=== PATIENT | female | born 1990 | race African-American/Black ===

== ENCOUNTER 2021-02-03 19:09 | Emergency (ER) | payer MEDICAID ==
[~2021-02-03] VITALS: Ht 175.3 cm; Wt 59.1 kg
[2021-02-03 19:20] VITALS: BP 126/73
--- NOTE | 2021-02-03 20:06 | PHYS DOC ---
Past History Past Surgical History: No Surgical History Alcohol Use: None Adult General Chief Complaint Chief Complaint: ABDOMINAL PAIN HPI HPI Patient is a 30-year-old female who presents with her family for chief complaint of eye infection. States she has been getting infections in her left eye on and off for the past couple of months and has 1 currently. Denies any headaches, fevers, chest pain, shortness of breath, abdominal pain, nausea, vomiting, diarrhea. Denies any Covid/flu/cold symptoms. States she is eating and drinking normally for her. States she is making urine and stool normally for her. States she has not taken any medications or done anything for this infection or seeing her doctor. Review of Systems Review of Systems Review of systems otherwise unremarkable except noted in HPI Allergies Allergies Allergies Coded Allergies Type Severity Reaction Last Updated Verified No Known Drug Allergies 02/03/21 No Physical Exam Physical Exam Constitutional: Well developed, well nourished, no acute distress, non-toxic appearance. [] HENT: Normocephalic, atraumatic, bilateral external ears normal, oropharynx moist, no oral exudates, nose normal. [] Eyes: conjunctiva normal, no discharge, stye/hordeolum left upper eyelid with no significant erythema, edema or tenderness, no visual loss.. [] Neck: Normal range of motion, no tenderness, supple, no stridor. [] Cardiovascular:Heart rate regular rhythm, no murmur [] Lungs & Thorax: Bilateral breath sounds clear to auscultation [] Abdomen: soft, no tenderness, no masses, no pulsatile masses. [] Skin: Warm, dry, no erythema, no rash. [] Neurologic: Alert and oriented X 3, normal motor function, normal sensory function, no focal deficits noted. [] Psychologic: Affect normal, judgement normal, mood normal. [] Current Patient Data Vital Signs Vital Signs Date Time Temp Pulse Resp B/P (MAP) Pulse Ox O2 Delivery O2 Flow Rate FiO2 02/03/21 19:20 99.1 112 24 126/73 100 Room Air EKG EKG [] Radiology/Procedures Radiology/Procedures [] Heart Score C/O Chest Pain: No Risk Factors: Risk Factors: DM, Current or recent (<one month) smoker, HTN, HLP, family history of CAD, obesity. Risk Scores: Risk Factors: DM, Current or recent (<one month) smoker, HTN, HLP, family history of CAD, obesity. Course & Med Decision Making Course & Med Decision Making Patient is 30-year-old female who presents with a stye Vital signs not concerning. Physical exam noted above. Denied need for pain medicine. Discussed treatment at home for styes. Advised to follow-up with primary care physician on Friday. Gave return precautions to the ED. Patient grateful, verbalized understanding and agreed with plan of discharge. [] Olivia Disclaimer Dragon Disclaimer This electronic medical record was generated, in whole or in part, using a voice recognition dictation system. Departure Departure: Impression: Primary Impression: Sty, external Disposition: HOME / SELF CARE / HOMELESS Condition: GOOD Referrals: EFREM ABEL MD, RACHEL Patient Instructions: Naomi Additional Instructions: Thank you for coming into the emergency department tonight and allowing us to take care of you. Please read the attached information very carefully to go back over things we discussed. Please begin your warm compress treatments at home and you can use Tylenol and ibuprofen as needed. Please call your primary care physician or one of the physicians at the numbers provided to you first thing Friday morning to set up a follow-up appointment. Dr. Abel is a mail manager if you do not already have one. Please come back to the ED with new or concerning symptoms as discussed. ADRIAN PATRICK MD Feb 03, 2021 20:06
== END 2021-02-03 20:10 | disposition home or self-care (01) ==
LOC: ER 19:09
DX: H00.014 Hordeolum externum left upper eyelid (principal)
CPT/HCPCS: 99282

== ENCOUNTER 2021-06-25 12:41 | Emergency (ER) | payer MEDICAID ==
[~2021-06-25] VITALS: Ht 175.3 cm; Wt 59.1 kg
[2021-06-25] MEDS ORDERED: LIDOCAINE 2% 20 ML VIAL. IJ ONE (13:30)
--- NOTE | 2021-06-25 14:09 | RAD ---
EXAM: Right hand, 3 views. HISTORY: Laceration. COMPARISON: None. FINDINGS: 3 views of the right hand are obtained. There is no fracture, dislocation or subluxation. T here is no radiodense foreign body. IMPRESSION: No acute osseous finding or foreign body. Electronically signed by: Jennifer Grady MD (06/25/2021 2:06 PM) [id number]
[2021-06-25] MEDS ORDERED: MORPHINE SULFATE 4 MG/ML DISP.SYRIN. ONE ×2 (14:37→14:49)
[2021-06-25] MEDS ORDERED: DIPHTH,PERTUSS(ACELL),TET TOX 0.5 ML DISP.SYRIN. VAX IM ONE (15:30)
--- NOTE | 2021-06-25 15:31 | PHYS DOC ---
Past History Past Surgical History: No Surgical History Alcohol Use: None General Adult EDM: Chief Complaint: LACERATION/AVULSION HPI: HPI: 30-year-old female presents with complex laceration of the right palm of the hand. 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 The handrail had some rou gh surface on and lacerated her hand. She looked at it and realized it was a large laceration that she would need to have it repaired in the hospital. She denies any other injuries or complaints at this time. Review of Systems: Review of Systems: Constitutional: Denies fever or chills Eyes: Denies change in visual acuity HENT: Denies nasal congestion or sore throat Respiratory: Denies cough or shortness of breath Cardiovascular: Denies chest pain or edema GI: Denies abdominal pain, nausea, vomiting, bloody stools or diarrhea : Denies dysuria Musculoskeletal: Denies back pain or joint pain Integument: Laceration right hand Neurologic: Denies headache, focal weakness or sensory changes Endocrine: Denies polyuria or polydipsia Lymphatic: Denies swollen glands Psychiatric: Denies depression or anxiety Current Medications: Current Meds: Current Medications Medications (Trade) Dose Ordered Sig/Jennifer Start Time Stop Time Status Last Admin Dose Admin Lidocaine HCl (Lidocaine 2%) 20 ml 1X ONCE 06/25/21 13:30 06/25/21 13:33 DC 06/25/21 13:40 20 ML Morphine Sulfate (Morphine 4mg Syringe) 4 mg STK-MED ONCE 06/25/21 14:49 06/25/21 14:49 DC Allergies: Allergies: Allergies Coded Allergies Type Severity Reaction Last Updated Verified No Known Drug Allergies 02/03/21 No Physical Exam: PE: Constitutional: Well developed, well nourished, no acute distress, non-toxic appearance. [] HENT: Normocephalic, atraumatic, bilateral external ears normal, oropharynx moist, no oral exudates, nose normal. [] Eyes: PERRLA, EOMI, conjunctiva normal, no discharge. [] Neck: Normal range of motion, no tenderness, supple, no stridor. [] Cardiovascular:Heart rate regular rhythm, no murmur [] Lungs & Thorax: Bilateral breath sounds clear to auscultation [] Abdomen: Bowel sounds normal, soft, no tenderness, no masses, no pulsatile masses. [] Skin: 2 cm x 6 cm laceration with flap of the right palm of the hand. [] Back: No tenderness, no CVA tenderness. [] Extremities: Full flexion of all 5 fingers, 1/3-1/2 laceration of flexor digitorum superficialis to the third digit. [] Neurologic: Alert and oriented X 3, normal motor function, normal sensory function, no focal deficits noted. [] Psychologic: Affect normal, judgement normal, mood normal. [] Current Patient Data: Vital Signs: Vital Signs Date Time Temp Pulse Resp B/P (MAP) Pulse Ox O2 Delivery O2 Flow Rate FiO2 06/25/21 13:50 95 20 104/56 (72) 100 Room Air 06/25/21 12:54 97.9 EKG: EKG: [] Radiology/Procedures: Radiology/Procedures: [] Heart Score: C/O Chest Pain: N/A Risk Factors: Risk Factors: DM, Current or recent (<one month) smoker, HTN, HLP, family his tory of CAD, obesity. Risk Scores: Score 0 - 3: 2.5% MACE over next 6 weeks - Discharge Home Score 4 - 6: 20.3% MACE over next 6 weeks - Admit for Clinical Observation Score 7 - 10: 72.7% MACE over next 6 weeks - Early Invasive Strategies Course & Med Decision Making: Course & Med Decision Making Pertinent Labs and Imaging studies reviewed. (See chart for details) The patient has a laceration with a flap of skin that is still attached but nearly severed. I was able to see a partial laceration of one of her tendons but she still has full range of motion. I spoke with the hand surgeon at [facility], Dr. Chiu and he recommended that I go ahead and so that flap in place after cleaning out the wound and splinting the hand. I have done that. See note below about the laceration repair. We will update her tetanus in the emergency room and place her on Keflex for 7 days. She was given a gram of Rocephin in the emergency room. She is stable for discharge at this time. [] Dragon Disclaimer: Dragon Disclaimer: This electronic medical record was generated, in whole or in part, using a voice recognition dictation system. Laceration Repair Lac Repair Indication: [] 2 cm x 6 cm laceration of the right palm of the hand. Procedure: I obtained verbal consent from the patient for suture approximation of her wound. The wound was attested ties with 2% lidocaine without epinephrine. This was a median nerve block. 3 cc was used. Once good anesthesia was achieved I thoroughly irrigated the wound with normal saline under pressure. No foreign bodies were found.. I placed Vicryl sutures in int errupted fashion loosely to approximate the flap the best I could. The patient's tetanus was updated in the emergency room. A clean dry dressing and splint were applied. Total repaired wound length: 2 cm x 6 cm Other Items: None The patient tolerated the procedure well. Complications: Large flap. Departure Departure: Impression: Primary Impression: Laceration of right hand with complication Disposition: HOME / SELF CARE / HOMELESS Condition: STABLE Referrals: PCP,NO (PCP) Patient Instructions: Laceration Care, Adult, [id number] Additional Instructions: Please call , hand surgeon at [facility] for a follow-up appointment on . The phone number is: [phone]. Scripts Hydrocodone/Acetaminophen (Hydrocodone-Acetamin 5-325 mg) 1 Each Tablet 1-2 EACH PO Q6HRS PRN for PAIN, #20 TAB Prov: QUIANA NORMAN DO 06/25/21 Cephalexin (CEPHALEXIN) 500 Mg Tablet 1 TAB PO TID for antibiotic for 7 Days, #21 TAB Prov: QUIANA NORMAN DO 06/25/21 QUIANA NORMAN DO Jun 25, 2021 15:31
[2021-06-25] MEDS ORDERED: CEPH500T PO (15:42)
[2021-06-25] MEDS ORDERED: HYDR-2759 PO (16:07)
[2021-06-25] MEDS ORDERED: cefTRIAXone SODIUM 1 GM VIAL ONE (16:19)
[2021-06-25] MEDS ORDERED: IV NORMAL SALINE 50ML 50 ML ONE (16:19)
[2021-06-25 16:40] VITALS: BP 104/71
== END 2021-06-25 16:42 | disposition home or self-care (01) ==
LOC: ER 12:41
DX: S61.411A Laceration without foreign body of right hand, initial encounter (principal); W00.0XXA Fall on same level due to ice and snow, initial encounter; Y93.89 Activity, other specified; Y92.89 Other specified places as the place of occurrence of the external cause; Y99.8 Other external cause status
CPT/HCPCS: 12001; 73130; 90471; 90715; 96365; 99284; J0696; J2001